=== PATIENT | female | born 1965 | race Caucasian/White ===

== ENCOUNTER 2017-07-17 06:21 | Emergency (ER) | payer OTHER ==
[~2017-07-17] VITALS: Ht 154.9 cm; Wt 61.2 kg
[2017-07-17 06:25] VITALS: BP 182/100
--- NOTE | 2017-07-17 06:41 | ED DYSPNEA/ASTHMA COMPLAINT ---
History of Present Illness General Chief Complaint: Dyspnea (COPD, CHF, Other) Stated Complaint: SOB Source: patient, family, old records Exam Limitations: no limitations Vital Signs & Intake/Output Vital Signs & Intake/Output Vital Signs Date Time Temp Pulse Resp B/P B/P Pulse O2 O2 Flow FiO2 Mean Ox Delivery Rate 07/17 624 97.7 94 20 182/100 98 Allergies Coded Allergies: No Known Allergies (07/17/17) Reconcile Medications Albuterol Sulfate (Proair Hfa) 90 MCG HFA.AER.AD 2 PUF INH Q4-6 PRN PRN bronchitis Loratadine (Claritin) 10 MG TABLET 1 TAB PO DAILY allergy Prednisone 20 MG TABLET 1 TAB PO BID sinusitis Triage Note: PT C/O TROUBLE BREATHING UPON WAKING THIS AM, USED FLONASE. DENIES ANY ASTHMA OR COPD HX. REPORTS BEING ABLE TO BREATHE BETTER AT THIS TIME. Triage Nurses Notes Reviewed? yes Duration: minute(s):, better, constant Timing: recent history Severity: moderate Activities at Onset: rest Prior Episodes/Possible Cause: allergen exposure Modifying Factors: Improves With: rest. Worsens With: movement. Associated Symptoms: anxiety, cough LMP (ages 10-50): post menopausal : No Patient currently breastfeeds: No HPI: Prior to admission patient awoke with shortness of breath nasal congestion nonproductive cough and took her usual Flonase. When she arrived at work she felt increased shortness of breath chest tightness. Denies fever chills nausea vomiting diarrhea abdominal pain headache dysuria rash bleeding. She reports chronic issues with allergies. Past History Travel History Traveled to [place] past 21 day No Medical History Any Pertinent Medical History? see below for history Neurological: NONE EENT: allergies Cardiovascular: NONE Respiratory: NONE Hepatic: NONE Renal: NONE Musculoskeletal: NONE Psychiatric: NONE Endocrine: NONE Blood Disorders: NONE Cancer(s): NONE Surgical History Surgical History: non-contributory Psychosocial History What is your primary language Green[place]ic Tobacco Use: Refused to answer ETOH Use: occasional use Family History Hx Contributory? No Review of Systems Review of Systems Constitutional: Reports: no symptoms. EENTM: Reports: see HPI, nasal congestion. Respiratory: Reports: see HPI, cough, short of breath. Cardiovascular: Reports: no symptoms. GI: Reports: no symptoms. Genitourinary: Reports: no symptoms. Musculoskeletal: Reports: no symptoms. Skin: Reports: no symptoms. Neurological/Psychological: Reports: no symptoms. Hematologic/Endocrine: Reports: no symptoms. Immunologic/Allergic: Reports: no symptoms. All Other Systems: Reviewed and Negative Physical Exam Physical Exam General Appearance: well developed/nourished, alert, awake, anxious, mild distress Head: atraumatic, normal appearance, tenderness (Sinus) Eyes: Bilateral: normal appearance, PERRL, EOMI. Ears, Nose, Throat: sinus pain/drainage, nasal congestion, pharyngeal erythema, moist mucus membranes Neck: normal inspection, supple, full range of motion, no midline tenderness Respiratory: normal breath sounds, chest non-tender, no respiratory distress, quiet respiration, lungs clear Cardiovascular: regular rate/rhythm, normal peripheral pulses, norml femoral pulses equa Peripheral Pulses: 4+ carotid (R), 4+ carotid (L) Gastrointestinal: normal bowel sounds, soft, non-tender, no organomegaly Extremities: normal inspection, normal capillary refill, normal range of motion, no edema Neurologic/Psych: no motor/sensory deficits, awake, alert, oriented x 3, normal gait, normal mood/affect, 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 No CVA/TIA Diagnosis No Sepsis Present: No Sepsis Focused Exam Completed? No Progress Differential Diagnosis: asthma, bronchitis, COPD, pneumonia Plan of Care: Current Medications Sig/Rg Start time Last Medication Dose Stop Time Status Admin Albuterol Sulfate 3 ML ONCE ONE 07/17 0645 AC 07/17 (Proventil) 07/17 0646 0640 Ipratropium [place] 2.5 ML ONCE ONE 07/17 0545 AC 07/17 (Atrovent) 07/17 0646 0640 Prednisone 60 MG ONCE ONE 07/17 0645 07/17 0646 Initial ED EKG: none Departure Departure Time of Disposition: 714 Disposition: HOME OR SELF CARE Condition: Stable Clinical Impression Primary Impression: Allergic rhinitis Secondary Impressions: Bronchitis Referrals: Grace ADAMS,Carter Richter (PCP/Family) Departure Forms: Customer Survey General Discharge Information RELEASE- WORK Prescriptions: Current Visit Scripts Prednisone 1 TAB PO BID #10 TAB Albuterol Sulfate (Proair Hfa) 2 PUF INH Q4-6 PRN PRN bronchitis #1 INHAL Loratadine (Claritin) 1 TAB PO DAILY #30 TAB Ref 10 Critical Care Note Critical Care Note Critical Care Time: non-applicable
[2017-07-17] MEDS ORDERED: PREDNISONE20 M1 PO (06:51)
[2017-07-17] MEDS ORDERED: PROAIR HFA8.5 GM INH (06:51)
[2017-07-17] MEDS ORDERED: CLARITIN10 M1 PO (06:51)
== END 2017-07-17 07:05 ==
LOC: ERH 06:21
DX: J30.9 Allergic rhinitis, unspecified (principal); J40 Bronchitis, not specified as acute or chronic; R07.89 Other chest pain
CPT/HCPCS: 1263